=== PATIENT | male | born 1945 | race Hispanic/Latino ===

== ENCOUNTER 2017-06-28 14:30 | Inpatient (IN) | payer MEDICARE ==
[~2017-06-28] VITALS: Ht 182.9 cm; Wt 103.0 kg
[2017-06-28 14:48] VITALS: BP 135/72
[2017-06-28 14:59] LABS: BASOPHILS % (AUTO) 0.6 % (0.0-5.0); EOSINOPHILS % (AUTO) 1.6 % (0.0-8.0); HEMATOCRIT 41.5 % (42-54); LYMPHOCYTES % (AUTO) 22.4 % (21.0-51.0); MEAN CORPUSCULAR HEMOGLOBIN 29.7 pg (27.0-33.0); MEAN CORPUSCULAR HGB CONC 33.4 g/dL (32.0-36.0); MONOCYTES % (AUTO) 11.5 % (3.0-13.0); NEUTROPHILS % (AUTO) 63.9 % (40.0-77.0); PLATELET COUNT (AUTO) 131 K/uL (130-400); RED BLOOD CELL COUNT(AUTO) 4.67 MIL/uL (4.50-6.20); RED CELL DISTRIBUTION WIDTH 14.1 % (11.0-15.5)
[2017-06-28 15:11] LABS: INR 1.04 (0.85-1.15); PARTIAL THROMBOPLASTIN TIME 27.3 SEC (26.3-35.5); PROTHROMBIN TIME 10.9 SEC (9.6-11.6)
[2017-06-28 15:39] LABS: CREATININE 1.1 mg/dL (0.5-1.5)
[2017-06-28 15:55] LABS: APPEARANCE,URINE Clear (CLEAR); BILIRUBIN,URINE Negative (NEGATIVE); COLOR,URINE Dark Yellow (YELLOW); GLUCOSE, URINE (UA) Negative (NEGATIVE); KETONES,URINE Negative (NEGATIVE); LEUKOCYTE ESTERASE ,URINE Small (NEGATIVE); NITRATE,URINE Negative (NEGATIVE); OCCULT BLOOD,URINE Negative (NEGATIVE); PH,URINE 5.5 (5.0-8.0); PROTEIN,URINE Negative (NEGATIVE); UROBILINOGEN,URINE 0.2 mg/dL (0.2-1.0)
[2017-06-28] MEDS ORDERED: LEVO200T10 PO (15:55)
[2017-06-28] MEDS ORDERED: ATOR10TA69 PO (15:55)
[2017-06-28] MEDS ORDERED: BUPR150T8 PO (15:55)
[2017-06-28] MEDS ORDERED: TRAV5DRO OS (15:55)
[2017-06-28] MEDS ORDERED: TAMS0.4C32 PO (15:55)
[2017-06-28] MEDS ORDERED: OMEP20CA10 PO (15:55)
[2017-06-28] MEDS ORDERED: AMLO5TAB2 PO (15:55)
[2017-06-28] MEDS ORDERED: ASPI-1197 PO (15:55)
[2017-06-28 16:01] LABS: BACTERIA,URINE Few /HPF (None Seen)
[2017-06-28 16:02] LABS: MUCUS,URINE Moderate LPF (None Seen); SQUAMOUS EPITHELIAL CELL,UR Rare /LPF (0-2)
[2017-07-01] VITALS (25 sets, daily range): BP systolic 107–149; BP diastolic 62–85
[2017-07-01] MEDS ORDERED: CEFAZOLIN 3GM /D5W 100ML 100 ML IV SCH (06:00)
[2017-07-01] MEDS ORDERED: LACTATED RINGERS 1000ML 1,000 ML IV ONE (11:05)
[2017-07-01] MEDS ORDERED: CELECOXIB 200 MG CAP ONE (11:06)
[2017-07-01] MEDS ORDERED: KETOROLAC TROMETHAMINE 15MG/ML ONE (11:06)
[2017-07-01] MEDS ORDERED: ACETAMINOPHEN EXTRA STRENGTH 500 MG TABLET ONE (11:06)
[2017-07-01] MEDS ORDERED: OXYCODONE HCL 10 MG TAB.SR.12H PO ONE (11:07)
[2017-07-01] MEDS: CEFAZOLIN SODIUM 1 GM VIAL ONE ×2 (11:21→15:03)
[2017-07-01] MEDS ORDERED: CEFAZOLIN SODIUM 1 GM VIAL ONE (13:29)
[2017-07-01] MEDS ORDERED: TRANEXAMIC ACID 1000MG/10ML IV ONE (13:29)
[2017-07-01] MEDS ORDERED: MIDAZOLAM HCL 1 MG/ML 2ML VIAL ONE (14:15)
[2017-07-01] MEDS ORDERED: PROPOFOL 10 MG/ML 20ML VIAL IV ONE ×2 (14:15→18:15)
[2017-07-01] MEDS ORDERED: FENTANYL CITRATE PF 50 MCG/1 ML 2ML VIAL ONE (14:15)
[2017-07-01] MEDS ORDERED: LIDOCAINE PF 2% 5ML ABBOJECT ONE (14:15)
[2017-07-01] MEDS ORDERED: ROPIVACAINE 0.5% 5MG/ML 30ML IJ ONE (14:32)
[2017-07-01] MEDS ORDERED: EPHEDRINE SULFATE 50 MG/ML AMPULE ONE (16:50)
[2017-07-01] MEDS ORDERED: GLYCOPYRROLATE 0.2 MG/ML 5 ML VIAL ONE (17:50)
[2017-07-01] MEDS ORDERED: NEOSTIGMINE METHYLSULFATE 1MG/ML IV ONE (17:50)
[2017-07-01] MEDS: SODIUM CHLORIDE 0.9% 1000ML 1,000 ML IV SCH (17:53)
[2017-07-01] MEDS ORDERED: KETOROLAC TROMETHAMINE 15MG/ML IV PRN (18:00)
[2017-07-01] MEDS ORDERED: TRAMADOL HCL 50 MG TABLET PO PRN (18:00)
[2017-07-01] MEDS ORDERED: FERROUS FUMARATE 324 MG TABLET PO PRN (18:00)
[2017-07-01] MEDS: ACETAMINOPHEN 325 MG TAB PO SCH (18:00)
[2017-07-01] MEDS ORDERED: TEMAZEPAM 15 MG CAPSULE PO PRN (18:00)
[2017-07-01] MEDS ORDERED: CALCIUM CARBONATE 500 MG TABLET PO PRN (18:00)
[2017-07-01] MEDS ORDERED: OXYCODONE HCL 5 MG TAB PO PRN ×2 (18:00)
[2017-07-01] MEDS ORDERED: POTASSIUM CHLORIDE 20 MEQ ERTAB PO PRN (18:00)
[2017-07-01] MEDS ORDERED: DIPHENHYDRAMINE HCL 25 MG CAPSULE PO PRN (18:00)
[2017-07-01] MEDS ORDERED: LIDOCAINE HCL-MPF 1% 2ML VIAL IVP PRN (18:00)
[2017-07-01] MEDS ORDERED: DiphenhydrAMINE HCL 50 MG/ML VIAL IVP PRN (18:00)
[2017-07-01] MEDS ORDERED: PROMETHAZINE HCL 25 MG/ML 1ML AMPULE IM PRN (18:00)
[2017-07-01] MEDS ORDERED: POTASSIUM CHLORIDE 20MEQ/100ML 100 ML IV PRN (18:00)
[2017-07-01] MEDS ORDERED: POTASSIUM CHLORIDE 10% ELIXIR 20 MEQ/15 ML UDCUP PO PRN (18:00)
[2017-07-01] MEDS ORDERED: MEPERIDINE-PF 25 MG/ML SYG ONE (18:40)
[2017-07-01] MEDS: CELECOXIB 200 MG CAP PO SCH (21:25)
[2017-07-01] MEDS: TAMSULOSIN HCL 0.4 MG CAP.ER.24H PO SCH (21:25)
[2017-07-01] MEDS: PREGABALIN 25 MG CAP PO SCH (21:25)
[2017-07-01] MEDS: AMLODIPINE BESYLATE 5 MG TAB PO SCH (21:26)
[2017-07-01] MEDS: CEFAZOLIN 3GM /D5W 100ML 100 ML IV SCH (23:00)
[2017-07-02] VITALS: BP 112/70
[2017-07-02] MEDS ORDERED: CEFAZOLIN SODIUM 1 GM VIAL ONE ×2 (00:15→08:54)
[2017-07-02] MEDS: ACETAMINOPHEN 325 MG TAB PO SCH ×4 (00:24→17:57)
[2017-07-02] MEDS: SODIUM CHLORIDE 0.9% 1000ML 1,000 ML IV SCH ×2 (03:53→11:40)
[2017-07-02 04:00] VITALS: BP 101/68
[2017-07-02 04:43] LABS: HEMATOCRIT 36.3 % (42-54); MEAN CORPUSCULAR HEMOGLOBIN 30.2 pg (27.0-33.0); MEAN CORPUSCULAR HGB CONC 33.9 g/dL (32.0-36.0); MEAN CORPUSCULAR VOLUME 89.2 fL (79-99); PLATELET COUNT (AUTO) 126 K/uL (130-400); RED BLOOD CELL COUNT(AUTO) 4.07 MIL/uL (4.50-6.20); RED CELL DISTRIBUTION WIDTH 13.7 % (11.0-15.5); WHITE BLOOD COUNT (AUTO) 11.2 K/uL (4.8-10.8)
[2017-07-02 04:50] LABS: CREATININE 1.1 mg/dL (0.5-1.5); POTASSIUM 4.3 mmol/L (3.5-5.1)
[2017-07-02] MEDS: LEVOTHYROXINE 100 MCG TABLET PO SCH (05:50)
[2017-07-02 07:52] VITALS: BP 94/59
[2017-07-02] MEDS: CEFAZOLIN 3GM /D5W 100ML 100 ML IV SCH (09:26)
[2017-07-02] MEDS: PREGABALIN 25 MG CAP PO SCH ×2 (09:27→20:36)
[2017-07-02] MEDS: CELECOXIB 200 MG CAP PO SCH ×2 (09:27→20:36)
[2017-07-02] MEDS: AMLODIPINE BESYLATE 5 MG TAB PO SCH ×2 (09:27→20:36)
[2017-07-02] MEDS: PANTOPRAZOLE SODIUM 40 MG TABLET.DR PO SCH (09:27)
[2017-07-02] MEDS: POLYETHYLENE GLYCOL 3350 17 GM POWD.PACK PO SCH (09:27)
[2017-07-02] MEDS: ATORVASTATIN CALCIUM 10 MG TABLET PO SCH (09:27)
[2017-07-02] MEDS: BUPROPION HCL 150 MG TABLET.SA PO SCH (09:28)
[2017-07-02 11:40] VITALS: BP 86/60
[2017-07-02] MEDS: PSYLLIUM SEED 1 EACH PACKET PO SCH (11:40)
[2017-07-02 16:48] VITALS: BP 92/50
[2017-07-02] MEDS: RIVAROXABAN 10 MG TABLET PO SCH (17:58)
[2017-07-02 20:00] VITALS: BP 124/76
[2017-07-02] MEDS: TAMSULOSIN HCL 0.4 MG CAP.ER.24H PO SCH (20:36)
[2017-07-02] MEDS ORDERED: HOME MEDICATION 1 EACH OS SCH (21:00)
[2017-07-03] VITALS: BP 103/61
[2017-07-03] MEDS: ACETAMINOPHEN 325 MG TAB PO SCH ×4 (00:13→16:45)
[2017-07-03 04:00] VITALS: BP 106/65
[2017-07-03 04:38] LABS: MEAN CORPUSCULAR HEMOGLOBIN 30.1 pg (27.0-33.0); MEAN CORPUSCULAR VOLUME 88.5 fL (79-99); PLATELET COUNT (AUTO) 101 K/uL (130-400); RED BLOOD CELL COUNT(AUTO) 3.51 MIL/uL (4.50-6.20); WHITE BLOOD COUNT (AUTO) 6.4 K/uL (4.8-10.8)
[2017-07-03 04:56] LABS: CREATININE 1.2 mg/dL (0.5-1.5); POTASSIUM 3.8 mmol/L (3.5-5.1)
[2017-07-03] MEDS: LEVOTHYROXINE 100 MCG TABLET PO SCH (06:34)
[2017-07-03 07:45] VITALS: BP 97/61
[2017-07-03] MEDS: AMLODIPINE BESYLATE 5 MG TAB PO SCH (09:00)
[2017-07-03] MEDS: POLYETHYLENE GLYCOL 3350 17 GM POWD.PACK PO SCH (09:16)
[2017-07-03] MEDS: BUPROPION HCL 150 MG TABLET.SA PO SCH (09:16)
[2017-07-03] MEDS: CELECOXIB 200 MG CAP PO SCH (09:16)
[2017-07-03] MEDS: PANTOPRAZOLE SODIUM 40 MG TABLET.DR PO SCH (09:16)
[2017-07-03] MEDS: PREGABALIN 25 MG CAP PO SCH (09:16)
[2017-07-03] MEDS: ATORVASTATIN CALCIUM 10 MG TABLET PO SCH (09:16)
[2017-07-03 11:14] VITALS: BP 120/74
[2017-07-03] MEDS ORDERED: FERR324T10 PO (11:44)
[2017-07-03] MEDS ORDERED: HYDR-309 PO (11:44)
[2017-07-03] MEDS ORDERED: RIVA10TA PO (11:44)
[2017-07-03] MEDS ORDERED: BISACODYL 5 MG TABLET.DR PO PRN (13:00)
[2017-07-03] MEDS ORDERED: BISACODYL 10 MG SUPP.RECT RC PRN (13:00)
[2017-07-03] MEDS: PSYLLIUM SEED 1 EACH PACKET PO SCH (13:28)
[2017-07-03] MEDS: RIVAROXABAN 10 MG TABLET PO SCH (15:54)
[2017-07-03 16:27] VITALS: BP 107/66
== END 2017-07-03 17:15 | disposition home health service (06) | DRG 470 ==
LOC: DAHIP 07-01 09:48 → 4AH 07-01 19:56
PROVIDERS: ADMIT Orthopaedic Surgery; ATTEND Orthopaedic Surgery
PROC: 0SR90JZ Replacement of Right Hip Joint with Synthetic Substitute, Open Approach (ICD-10-PCS; principal; 2017-07-01 14:16)
DX: M16.11 Unilateral primary osteoarthritis, right hip (principal); E03.9 Hypothyroidism, unspecified; E78.5 Hyperlipidemia, unspecified; I10 Essential (primary) hypertension; K21.9 Gastro-esophageal reflux disease without esophagitis; G89.29 Other chronic pain
CPT/HCPCS: 36415; 73503; 80048; 81001; 85025; 85027; 85610; 85730; 88309; 88311; 93005; 96374; A4218; J0690; J1885; J2001; J2175; J2250; J2704; J2710; J2795; J3010; J3490; J7030; J7120

== ENCOUNTER → 2018-09-24 | Outpatient (CLI) | payer MEDICARE ==
[~2018-09-24] MED LIST: AMLO5TAB9 PO; ATOR10TA69 PO; BUPR150T8 PO; FERR324T10 PO; HYDR-4457 PO; LEVO200T10 PO; OMEP20CA10 PO; RIVA10TA PO; TAMS0.4C32 PO; TRAV5DRO OS
--- NOTE | 2018-09-24 10:30 | NUR ---
MBSS COMPLETED. -S/S OF ASPIRATION DURING THE EVALUATION. RECOMMEND FULL LIQUID DIET; PILLS CRUSHED WITH APPLESAUCE. PATIENT INFORMATION: Pt IS A 73 YEAR OLD MALE WHO WAS REFERRED FOR AN MBSS SECONDARY TO COMPLAINS OF DIFFICULTY SWALLOWING. Pt REPORTS THAT HE FEELS FOOD GET STUCK IN HIS THROAT AND HAS TO COUGH IN RESPONSE. HE REPORTS [place] HE HAS A HISTORY OF A DIVERTICULUM. Pt HAS A HISTORY OF HYPERTENSION AND RIGHT HIP OSTEOARTHRITIS. MBSS: PT PRESENTS WITH ADEQUATE OROPHARYNGEAL SWALLOW WITH NO OVERT S/S OF ASPIRATION. BOLUS TRAVELS PAST UPPER ESOPHAGEAL SPHINCTER. TRIALS WERE PRESENTED PT WITH POOLING IN ESOPHAGUS NOTED. A-P VIEW REVEALED POCKET (DIVERTICULUM) IN POSTERIOR PORTION OF UPPER 1/3 OF ESOPHAGUS WITH COMPLETE BOLUS POCKETING WITH PUREED AND PUDDING TEXTURES. THIN LIQUIDS WERE ABLE TO CLEAR APPROXIMATELY 50% OF MATERIAL THAT WAS POCKETED AND WAS ABLE TO GO PAST POCKET REACHING STOMACH. PLEASE NOTE THAT IF POCKET IS NOT CLEARED BETWEEN BOLUS PRESENTATIONS, OVERFLOW OF DIVERTICULUM PUSHES AGAINST UPPER ESOPHAGUS CREATING REFLUX OF BOLUS PAST UES. RECOMMENDATIONS: 1. FULL LIQUID DIET, THIN LIQUIDS; PILLS CRUSHED WITH APPLESAUCE. 2. COMPENSATORY STRATEGIES (STRICT): *SEATED AT 90 *ALTERNATE BITES AND SIPS *REMAIN UPRIGHT 30 MINUTES AFTER THE MEAL *AVOID SCATTERED TEXTURES 3.GI CONSULT RESULTS AND RECOMMENDATIONS WERE REVIEWED WITH Pt. HE VERBALIZED UNDERSTANDING AND COMPLIANCE WITH RECOMMENDATIONS. ALL QUESTIONS ANSWERED AT THIS TIME. G-CODES SWALLOWING: [id number] Addendum: 09/25/18 at 0848 by BRIANA JOHNSTON Amended: Links added.
== END | disposition home or self-care (01) ==
LOC: RAH 09:26
PROVIDERS: ATTEND Internal Medicine Gastroenterology
DX: R13.12 Dysphagia, oropharyngeal phase (principal); R63.3 Feeding difficulties
CPT/HCPCS: 74230; 92611

== ENCOUNTER → 2020-11-14 | Outpatient (CLI) | payer MEDICARE ==
[~2020-11-14] MED LIST changes: +AMLO-257 PO; -AMLO5TAB9 PO; -OMEP20CA10 PO; +OMEP20CA12 PO
== END | disposition home or self-care (01) ==
LOC: RAH 16:13
PROVIDERS: ATTEND Physical Medicine & Rehabilitation
DX: M50.33 Other cervical disc degeneration, cervicothoracic region (principal); M48.03 Spinal stenosis, cervicothoracic region
CPT/HCPCS: 72050

== ENCOUNTER → 2021-08-30 | Outpatient (CLI) | payer MEDICARE | END | disposition home or self-care (01) | LOC: RAH 10:28 | PROVIDERS: ATTEND Physical Medicine & Rehabilitation | DX: M16.12 Unilateral primary osteoarthritis, left hip (principal); Z96.641 Presence of right artificial hip joint | CPT/HCPCS: 73502 ==

== ENCOUNTER 2021-12-26 14:00 | Inpatient (IN) | payer MEDICARE ==
[~2021-12-26] VITALS: Ht 182.9 cm; Wt 110.8 kg
[2021-12-26 11:00] LABS: APPEARANCE,URINE Clear (CLEAR); BILIRUBIN,URINE Negative (NEGATIVE); COLOR,URINE Dark Yellow (YELLOW); GLUCOSE, URINE (UA) Negative (NEGATIVE); KETONES,URINE Negative (NEGATIVE); LEUKOCYTE ESTERASE ,URINE Negative (NEGATIVE); NITRATE,URINE Negative (NEGATIVE); OCCULT BLOOD,URINE Negative (NEGATIVE); PROTEIN,URINE Negative (NEGATIVE); UROBILINOGEN,URINE 0.2 mg/dL (0.2-1.0)
[2021-12-26 11:01] LABS: BASOPHILS % (AUTO) 0.7 % (0.0-5.0); EOSINOPHILS % (AUTO) 2.6 % (0.0-8.0); HEMATOCRIT 45.6 % (42-54); LYMPHOCYTES % (AUTO) 23.7 % (21.0-51.0); MEAN CORPUSCULAR HEMOGLOBIN 28.9 pg (27.0-33.0); MEAN CORPUSCULAR VOLUME 90.1 fL (79-99); MONOCYTES % (AUTO) 11.7 % (3.0-13.0); NEUTROPHILS % (AUTO) 60.8 % (40.0-77.0); PLATELET COUNT (AUTO) 145 K/uL (130-400); RED BLOOD CELL COUNT(AUTO) 5.06 MIL/uL (4.50-6.20); RED CELL DISTRIBUTION WIDTH 13.7 % (11.0-15.5); WHITE BLOOD COUNT (AUTO) 6.2 K/uL (4.8-10.8)
[2021-12-26 11:34] LABS: INR 0.97 (0.85-1.15); PROTHROMBIN TIME 10.6 SEC (9.6-11.6)
[~2021-12-26 14:00] MED LIST changes: -AMLO-257 PO; -ATOR10TA69 PO; -BUPR150T8 PO; -FERR324T10 PO; -HYDR-4457 PO; -LEVO200T10 PO; -OMEP20CA12 PO; -RIVA10TA PO; -TAMS0.4C32 PO
[2021-12-26 14:19] VITALS: BP 151/90
[2021-12-26] MEDS ORDERED: AMLO-257 PO (19:01)
[2021-12-26] MEDS ORDERED: AEC81 PO ×2 (19:01)
[2021-12-26] MEDS ORDERED: CHLO15TA PO (19:01)
[2021-12-26] MEDS ORDERED: OMEP40CA21 PO (19:01)
[2021-12-26] MEDS ORDERED: LEVO25TA54 PO (19:01)
[2021-12-26] MEDS ORDERED: UBID30CA11 PO (19:01)
[2021-12-26] MEDS ORDERED: BUPR200T2 PO (19:01)
[2021-12-26] MEDS ORDERED: LEVO200C2 PO (19:01)
[2021-12-26] MEDS ORDERED: VITA1CAP85 PO (19:01)
[2021-12-26] MEDS ORDERED: FAMO40TA7 PO (19:01)
[2021-12-26] MEDS ORDERED: CYAN100099 PO (19:01)
[2021-12-26] MEDS ORDERED: ATOR20TA65 PO (19:01)
[2021-12-26] MEDS ORDERED: CHOL100040 PO (19:01)
[2021-12-26] MEDS ORDERED: FISH1CAP27 PO (19:01)
[2021-12-26] MEDS ORDERED: ASCO500C6 PO (19:01)
[2021-12-27] VITALS (23 sets, daily range): BP systolic 112–151; BP diastolic 66–94
[2021-12-27] MEDS: CEFAZOLIN SODIUM 1 GM VIAL IVP SCH ×2 (11:30→13:15)
[2021-12-27] MEDS ORDERED: LACTATED RINGERS 1000ML 1,000 ML IV ONE (11:32)
[2021-12-27] MEDS ORDERED: CEFAZOLIN SODIUM 1 GM VIAL ONE (12:23)
[2021-12-27] MEDS ORDERED: TRANEXAMIC ACID 1000MG/10ML ONE ×2 (12:23→17:17)
[2021-12-27] MEDS ORDERED: SUCCINYLCHOLINE CHLORIDE 20 MG/ML 10 ML VIAL ONE (13:04)
[2021-12-27] MEDS ORDERED: FENTANYL CITRATE PF 50 MCG/1 ML 2ML VIAL ONE (13:05)
[2021-12-27] MEDS ORDERED: MIDAZOLAM HCL 1 MG/ML 2ML VIAL ONE (13:05)
[2021-12-27] MEDS ORDERED: PROPOFOL 10 MG/ML 20ML VIAL IV ONE (13:05)
[2021-12-27] MEDS ORDERED: ROCURONIUM 10MG/1ML SYR 10 MG/ML ML ONE ×2 (13:05→14:02)
[2021-12-27] MEDS ORDERED: ROPIVACAINE 0.5% 5MG/ML 30ML IJ ONE (13:08)
[2021-12-27] MEDS ORDERED: DEXAMETHASONE SOD PHOSPHATE 10MG/ML 1ML VIAL ONE (13:18)
[2021-12-27] MEDS ORDERED: EPHEDRINE SULFATE 50 MG/ML AMPULE ONE (15:47)
[2021-12-27] MEDS ORDERED: GLYCOPYRROLATE 1 MG/5 ML SYRINGE ONE (16:13)
[2021-12-27] MEDS ORDERED: TRAMADOL HCL 50 MG TABLET PO PRN (17:00)
[2021-12-27] MEDS ORDERED: 0.9%NACL 1000ML 1,000 ML IV SCH (17:00)
[2021-12-27] MEDS ORDERED: OXYCODONE HCL 5 MG TAB PO PRN ×2 (17:00)
[2021-12-27] MEDS ORDERED: POTASSIUM CHLORIDE 10% ELIXIR 20 MEQ/15 ML UDCUP PO PRN (17:00)
[2021-12-27] MEDS ORDERED: DiphenhydrAMINE HCL 50 MG/ML VIAL IVP PRN (17:00)
[2021-12-27] MEDS ORDERED: POTASSIUM CHLORIDE 20MEQ/100ML 100 ML IV PRN (17:00)
[2021-12-27] MEDS ORDERED: KCL 20 MEQ ERTAB PO PRN (17:00)
[2021-12-27] MEDS ORDERED: LIDOCAINE HCL-MPF 1% 2ML VIAL IV PRN (17:00)
[2021-12-27] MEDS ORDERED: CALCIUM CARB 500MG PO PRN (17:00)
[2021-12-27] MEDS ORDERED: ONDANSETRON 4MG INJ IVP PRN (17:00)
[2021-12-27] MEDS ORDERED: FERROUS FUMARATE 324 MG TABLET PO PRN (17:00)
[2021-12-27] MEDS ORDERED: MEPERIDINE-PF 25 MG/ML SYG ONE (18:29)
[2021-12-27] MEDS: CELECOXIB 200 MG CAP PO SCH (20:23)
[2021-12-27] MEDS: ACETAMINOPHEN 500 MG TABLET PO SCH (20:23)
[2021-12-27] MEDS: PREGABALIN 25 MG CAP PO SCH (20:23)
[2021-12-27] MEDS: ASPIRIN 81 MG EC TAB PO SCH (20:23)
[2021-12-27] MEDS: CEFAZOLIN SODIUM 3 GM in DEXTROSE 5%-WATER 100 ML IVP SCH (20:24)
[2021-12-27] MEDS: TRAVOPROST OS SCH (21:00)
[2021-12-27] MEDS ORDERED: PHARMACY COMMUNICATION MISC SCH (21:30)
[2021-12-27] MEDS: FAMOTIDINE 20MG TAB PO SCH (22:30)
[2021-12-27] MEDS: ATORVASTATIN 20 MG TABLET PO SCH (22:30)
[2021-12-27] MEDS: AMLODIPINE 5 MG TAB PO SCH (22:30)
[2021-12-27] MEDS ORDERED: ASPIRIN 81 MG EC TAB PO SCH (23:00)
[2021-12-28] VITALS (7 sets, daily range): BP systolic 94–129; BP diastolic 62–75
[2021-12-28] MEDS: KETOROLAC 15MG/ML VIAL (15MG/ML) IV PRN (00:37)
[2021-12-28] MEDS: ACETAMINOPHEN 500 MG TABLET PO SCH ×3 (00:37→16:35)
[2021-12-28] MEDS: CEFAZOLIN SODIUM 3 GM in DEXTROSE 5%-WATER 100 ML IVP SCH (00:42)
[2021-12-28] MEDS ORDERED: LEVOTHYROXINE 25 MCG TABLET ONE (05:16)
[2021-12-28] MEDS ORDERED: LEVOTHYROXINE 100 MCG TABLET ONE (05:16)
[2021-12-28] MEDS: LEVOTHYROXINE 100 MCG TABLET PO SCH (05:44)
[2021-12-28] MEDS: LEVOTHYROXINE 25 MCG TABLET PO SCH (05:45)
[2021-12-28 05:57] LABS: HEMATOCRIT 34.7 % (42-54); MEAN CORPUSCULAR HEMOGLOBIN 29.5 pg (27.0-33.0); MEAN CORPUSCULAR HGB CONC 33.1 g/dL (32.0-36.0); RED BLOOD CELL COUNT(AUTO) 3.9 MIL/uL (4.50-6.20); RED CELL DISTRIBUTION WIDTH 13.5 % (11.0-15.5)
[2021-12-28 06:13] LABS: CREATININE 1.4 mg/dL (0.5-1.5); POTASSIUM 3.9 mmol/L (3.5-5.1)
[2021-12-28] MEDS: BUPROPION HCL 200 MG PO SCH (09:00)
[2021-12-28] MEDS: CHLORTHALIDONE 15 MG PO SCH (09:00)
[2021-12-28] MEDS: TAMSULOSIN HCL 0.4 MG CAP.ER.24H PO SCH (10:08)
[2021-12-28] MEDS: CELECOXIB 200 MG CAP PO SCH ×2 (10:08→20:11)
[2021-12-28] MEDS: AMLODIPINE 5 MG TAB PO SCH ×2 (10:08→20:11)
[2021-12-28] MEDS: ASPIRIN 81 MG EC TAB PO SCH ×2 (10:09→20:11)
[2021-12-28] MEDS: POLYETHYLENE GLYCOL 3350 17 GM POWD.PACK PO SCH (10:09)
[2021-12-28] MEDS: PREGABALIN 25 MG CAP PO SCH ×2 (10:09→20:11)
[2021-12-28] MEDS: PANTOPRAZOLE 40 MG TAB DR PO SCH (14:49)
[2021-12-28] MEDS: TRAVOPROST OS SCH (20:06)
[2021-12-28] MEDS: FAMOTIDINE 20MG TAB PO SCH (20:11)
[2021-12-28] MEDS: ATORVASTATIN 20 MG TABLET PO SCH (20:12)
[2021-12-29] MEDS: KETOROLAC 15MG/ML VIAL (15MG/ML) IV PRN (00:01)
[2021-12-29] MEDS: ACETAMINOPHEN 500 MG TABLET PO SCH (00:06)
[2021-12-29 00:32] VITALS: BP 105/60
[2021-12-29 04:12] VITALS: BP 115/60
[2021-12-29] MEDS: LEVOTHYROXINE 100 MCG TABLET PO SCH (06:02)
[2021-12-29] MEDS: LEVOTHYROXINE 25 MCG TABLET PO SCH (06:02)
[2021-12-29 08:00] VITALS: BP 105/58
[2021-12-29] MEDS: BUPROPION HCL 200 MG PO SCH (09:00)
[2021-12-29] MEDS: CHLORTHALIDONE 15 MG PO SCH (09:00)
[2021-12-29] MEDS: ASPIRIN 81 MG EC TAB PO SCH (10:20)
[2021-12-29] MEDS: PREGABALIN 25 MG CAP PO SCH (10:20)
[2021-12-29] MEDS: POLYETHYLENE GLYCOL 3350 17 GM POWD.PACK PO SCH (10:20)
[2021-12-29] MEDS: CELECOXIB 200 MG CAP PO SCH (10:21)
[2021-12-29] MEDS: TAMSULOSIN HCL 0.4 MG CAP.ER.24H PO SCH (10:21)
[2021-12-29] MEDS: AMLODIPINE 5 MG TAB PO SCH (10:21)
[2021-12-29 12:00] VITALS: BP 104/55
[2021-12-29] MEDS: PANTOPRAZOLE 40 MG TAB DR PO SCH (12:32)
[2021-12-29] MEDS ORDERED: AEC81 PO (13:15)
[2021-12-29] MEDS ORDERED: HYDR-4060 PO (13:15)
[2021-12-29] MEDS ORDERED: ACETAMINOPHEN 500 MG TABLET PO SCH (14:00)
[2021-12-29 16:00] VITALS: BP 123/80
[2021-12-30] MEDS ORDERED: BISACODYL 10 MG SUPP.RECT RC PRN (17:00)
== END 2021-12-29 18:15 | disposition home health service (06) | DRG 470 ==
LOC: EDSTATUS 14:00 → OBSVTOIN 12-27 09:42 → DAHIP 12-27 09:42 → EDSTATUS 12-27 14:00 → 4BH 12-27 19:25
PROVIDERS: ADMIT Orthopaedic Surgery; ATTEND Orthopaedic Surgery
PROC: 0SRB03Z Replacement of Left Hip Joint with Ceramic Synthetic Substitute, Open Approach (ICD-10-PCS; principal; 2021-12-27 13:07)
DX: M16.12 Unilateral primary osteoarthritis, left hip (principal); D62 Acute posthemorrhagic anemia; E03.9 Hypothyroidism, unspecified; E78.5 Hyperlipidemia, unspecified; I10 Essential (primary) hypertension; Z83.3 Family history of diabetes mellitus; Z96.641 Presence of right artificial hip joint; K21.9 Gastro-esophageal reflux disease without esophagitis; R33.9 Retention of urine, unspecified; Z82.61 Family history of arthritis; Z96.651 Presence of right artificial knee joint
CPT/HCPCS: 36415; 73503; 80048; 81003; 85025; 85027; 85610; 87088; 87426; 87641; 93005; 97039; G0378; J0330; J0690; J1100; J1885; J2175; J2250; J2704; J2795; J3010; J3490; J7030; J7060; J7120

== ENCOUNTER 2022-01-29 15:44 | Emergency (ER) | payer MEDICARE ==
[~2022-01-29] VITALS: Ht 185.4 cm; Wt 113.4 kg
[~2022-01-29 15:44] MED LIST changes: +AEC81 PO; +AMLO-257 PO; +ASCO500C6 PO; +ATOR20TA65 PO; +BUPR200T2 PO; +CEPH500B PO; +CHLO15TA PO; +CHOL100040 PO; +CYAN100099 PO; +FAMO40TA7 PO; +FISH1CAP27 PO; +HYDR-4060 PO; +LEVO200C2 PO; +LEVO25TA54 PO; +OMEP40CA21 PO; +UBID30CA11 PO; +VITA1CAP85 PO
[2022-01-29 15:50] VITALS: BP 105/66
== END 2022-01-29 16:14 | disposition home or self-care (01) ==
LOC: EDH 15:44
DX: T83.9XXA Unspecified complication of genitourinary prosthetic device, implant and graft, initial encounter (principal); E11.9 Type 2 diabetes mellitus without complications; I10 Essential (primary) hypertension; Z79.899 Other long term (current) drug therapy; Z79.82 Long term (current) use of aspirin; Z98.890 Other specified postprocedural states

== ENCOUNTER 2022-02-11 15:25 | Emergency (ER) | payer MEDICARE ==
[~2022-02-11] VITALS: Ht 185.4 cm; Wt 120.2 kg
[2022-02-11] MEDS ORDERED: IPRATROPIUM/ALBUTEROL SULFATE 3 ML SOLUTION IH ONE (16:00)
[2022-02-11] MEDS ORDERED: BUDESONIDE 0.5 MG/2 ML INH IH SCH (16:00)
[2022-02-11 16:01] LABS: BASOPHILS % (AUTO) 0.4 % (0.0-5.0); EOSINOPHILS % (AUTO) 0.3 % (0.0-8.0); HEMATOCRIT 36.5 % (42-54); LYMPHOCYTES % (AUTO) 9.2 % (21.0-51.0); MEAN CORPUSCULAR HEMOGLOBIN 27.5 pg (27.0-33.0); MEAN CORPUSCULAR HGB CONC 32.1 g/dL (32.0-36.0); MEAN CORPUSCULAR VOLUME 85.7 fL (79-99); NEUTROPHILS % (AUTO) 82.6 % (40.0-77.0); PLATELET COUNT (AUTO) 164 K/uL (130-400); RED BLOOD CELL COUNT(AUTO) 4.26 MIL/uL (4.50-6.20); WHITE BLOOD COUNT (AUTO) 14.5 K/uL (4.8-10.8)
[2022-02-11] MEDS ORDERED: 0.9%NACL 50ML 50 ML IV ONE (16:19)
[2022-02-11 16:23] LABS: APPEARANCE,URINE CLOUDY (CLEAR); BILIRUBIN,URINE NEGATIVE (NEGATIVE); COLOR,URINE YELLOW (YELLOW); GLUCOSE, URINE (UA) NEGATIVE (NEGATIVE); KETONES,URINE 15 mg/dL (NEGATIVE); LEUKOCYTE ESTERASE ,URINE MODERATE (NEGATIVE); NITRATE,URINE POSITIVE (NEGATIVE); OCCULT BLOOD,URINE SMALL (NEGATIVE); PROTEIN,URINE 100 mg/dL (NEGATIVE)
[2022-02-11 16:24] LABS: CREATININE 1.3 mg/dL (0.5-1.5); POTASSIUM 3.2 mmol/L (3.5-5.1)
[2022-02-11 16:29] LABS: ALBUMIN 3.1 g/dL (3.5-5.0); CRP QUANTITATIVE 66.2 mg/L (0.00-9.0); TOTAL PROTEIN, SERUM 6.5 g/dL (6.0-8.3)
[2022-02-11] MEDS ORDERED: POTASSIUM BICARB/CIT AC 25 MEQ TABLET.EFF PO ONE (16:30)
[2022-02-11] MEDS ORDERED: ZOSYN 3.375GM +NS 50ML IV ONE (16:30)
[2022-02-11 16:42] LABS: BACTERIA,URINE Moderate /HPF (None Seen); MUCUS,URINE Few LPF (None Seen); SQUAMOUS EPITHELIAL CELL,UR Few /HPF (0-2)
[2022-02-11] MEDS ORDERED: POTASSIUM BICARB/CIT AC 25 MEQ TABLET.EFF ONE (16:54)
[2022-02-11 17:02] VITALS: BP 119/58
[2022-02-11] MEDS ORDERED: ALBU8.5H8 IH (17:07)
[2022-02-11] MEDS ORDERED: CEPH500B PO (17:07)
[2022-02-11] MEDS ORDERED: ACET-2247 PO (17:07)
== END 2022-02-11 17:45 | disposition home or self-care (01) ==
LOC: EDH 15:25
DX: N39.0 Urinary tract infection, site not specified (principal); J06.9 Acute upper respiratory infection, unspecified; Z20.822 Contact with and (suspected) exposure to COVID-19; E11.9 Type 2 diabetes mellitus without complications; I10 Essential (primary) hypertension
CPT/HCPCS: 99284; 96365; 71045; 87635; 82550; 84484; 80053; 85025; 87040 ×2; 87077 ×2; 87088; 87186 ×2; 87804 ×2; 83605; 86140; 81001; 36415; 94640; C9803; J2543

== ENCOUNTER 2022-04-05 05:56 | Day surgery (SDC) | payer MEDICARE ==
[2022-03-30 13:23] LABS: BASOPHILS % (AUTO) 0.6 % (0.0-5.0); EOSINOPHILS % (AUTO) 1.7 % (0.0-8.0); HEMATOCRIT 40.6 % (42-54); LYMPHOCYTES % (AUTO) 20.6 % (21.0-51.0); MEAN CORPUSCULAR HEMOGLOBIN 25.8 pg (27.0-33.0); MEAN CORPUSCULAR HGB CONC 31.3 g/dL (32.0-36.0); MEAN CORPUSCULAR VOLUME 82.4 fL (79-99); MONOCYTES % (AUTO) 11.6 % (3.0-13.0); NEUTROPHILS % (AUTO) 65.1 % (40.0-77.0); PLATELET COUNT (AUTO) 205 K/uL (130-400); RED BLOOD CELL COUNT(AUTO) 4.93 MIL/uL (4.50-6.20); RED CELL DISTRIBUTION WIDTH 15.3 % (11.0-15.5)
[2022-03-30 13:33] LABS: POTASSIUM 3.5 mmol/L (3.5-5.1)
[2022-03-30 13:35] LABS: INR 0.98 (0.85-1.15); PROTHROMBIN TIME 10.7 SEC (9.6-11.6)
[2022-03-30 13:36] LABS: PARTIAL THROMBOPLASTIN TIME 28.8 SEC (26.3-35.5)
[2022-03-30 13:37] LABS: APPEARANCE,URINE CLOUDY (CLEAR); BILIRUBIN,URINE NEGATIVE (NEGATIVE); COLOR,URINE DARK-YELLOW (YELLOW); GLUCOSE, URINE (UA) NEGATIVE (NEGATIVE); KETONES,URINE NEGATIVE (NEGATIVE); LEUKOCYTE ESTERASE ,URINE 500 Leu/uL (NEGATIVE); NITRATE,URINE 1+ (NEGATIVE); OCCULT BLOOD,URINE NEGATIVE (NEGATIVE); PH,URINE 5.5 (5.0-8.0); PROTEIN,URINE 200 mg/dL (NEGATIVE); UROBILINOGEN,URINE 0.2 mg/dL (0.2-1.0)
[2022-03-30 13:43] LABS: BACTERIA,URINE MOD /HPF (None Seen); MUCUS,URINE FEW LPF (None Seen); RBC,URINE 26-50 /HPF (0-1); SQUAMOUS EPITHELIAL CELL,UR RARE /HPF (0-2); WBC,URINE 51-100 /HPF (0-1); YEAST,URINE BUDDING FEW /HPF (None Seen)
[2022-04-04 13:31] VITALS: BP 144/89
[~2022-04-05] VITALS: Ht 185.4 cm; Wt 108.0 kg
[2022-04-05] VITALS (20 sets, daily range): BP systolic 131–151; BP diastolic 66–90
[~2022-04-05 05:56] MED LIST changes: -CEPH500B PO; -CHLO15TA PO; -CHOL100040 PO; -CYAN100099 PO; +D-MANNOSE PO; +DONE10TA43 PO; -HYDR-4060 PO; +HYDR12.54 PO; +LEVO-70 PO; +MELA1TAB17 PO; +OMEP20CA12 PO; -OMEP40CA21 PO; +PHARMACY COMMUNICATION MISC SCH; +TAMS-1 PO; +VITAMIN D PO
[2022-04-05] MEDS ORDERED: CEFTRIAXONE 1G VIAL IVP SCH (06:00)
[2022-04-05] MEDS ORDERED: LACTATED RINGERS 1000ML 1,000 ML IV ONE (06:55)
[2022-04-05] MEDS ORDERED: ONDANSETRON 4MG INJ ONE (07:18)
[2022-04-05] MEDS ORDERED: DEXAMETHASONE SOD PHOSPHATE 10MG/ML 1ML VIAL ONE (07:18)
[2022-04-05] MEDS ORDERED: LIDOCAINE PF 100MG/5ML (2%) SYRINGE 5ML ONE ×2 (07:18→10:12)
[2022-04-05] MEDS ORDERED: SUCCINYLCHOLINE 200MG/10ML SYR ONE (07:18)
[2022-04-05] MEDS ORDERED: ROCURONIUM 10MG/1ML SYR 10 MG/ML ML ONE (07:19)
[2022-04-05] MEDS ORDERED: PROPOFOL 10 MG/ML 20ML VIAL IV ONE (07:19)
[2022-04-05] MEDS ORDERED: FENTANYL CITRATE PF 50 MCG/1 ML 2ML VIAL ONE (07:19)
[2022-04-05] MEDS ORDERED: NEOSTIGMINE 5MG/5ML SYR IV ONE (07:19)
[2022-04-05] MEDS ORDERED: GLYCOPYRROLATE 1 MG/5 ML SYRINGE ONE (07:19)
[2022-04-05] MEDS ORDERED: MIDAZOLAM HCL 1 MG/ML 2ML VIAL ONE (07:24)
[2022-04-05] MEDS ORDERED: GENTAMICIN SULFATE IV SCH (07:30)
[2022-04-05] MEDS ORDERED: [UNRECOGNIZED DRUG - OTHER] IV SCH (07:30)
[2022-04-05] MEDS ORDERED: CEFTRIAXONE 1G VIAL IVP ONE (08:51)
[2022-04-05] MEDS ORDERED: OPIUM/BELLADONNA ALKALOIDS 1 EACH SUPP.RECT RC ONE (10:50)
== END 2022-04-05 13:00 | disposition home or self-care (01) ==
LOC: DAH 05:56
PROVIDERS: ATTEND Urology
DX: N40.1 Benign prostatic hyperplasia with lower urinary tract symptoms (principal); Z20.822 Contact with and (suspected) exposure to COVID-19; R33.8 Other retention of urine; I10 Essential (primary) hypertension; E66.01 Morbid (severe) obesity due to excess calories; M19.90 Unspecified osteoarthritis, unspecified site; Z79.899 Other long term (current) drug therapy; Z79.01 Long term (current) use of anticoagulants; Z98.890 Other specified postprocedural states; Z83.3 Family history of diabetes mellitus; Z82.49 Family history of ischemic heart disease and other diseases of the circulatory system
CPT/HCPCS: 80048; 85025; 85610; 85730; 87077; 87088; 87186; 87426; 81001; 36415; 52648; A6260; A4663; C1758; A4354; J7120; J3010; J0330; J3490; J1100; J2710; J2001 ×2; J1580; J0696 ×2; J2250; J2704; J2405; A4358 ×2; A4215 ×2; A4649; A4930; A6402; A4222; A4221; A4223 ×2; A4335 ×2; A4554; A4600; A5113

== ENCOUNTER → 2022-07-23 | Outpatient (CLI) | payer MEDICARE ==
[~2022-07-23] MED LIST changes: -PHARMACY COMMUNICATION MISC SCH
== END | disposition home or self-care (01) ==
LOC: RAH 10:00
PROVIDERS: ATTEND Internal Medicine Gastroenterology
DX: K44.9 Diaphragmatic hernia without obstruction or gangrene (principal); K21.9 Gastro-esophageal reflux disease without esophagitis; R05.9 Cough, unspecified
CPT/HCPCS: 74240